=== PATIENT | female | born 1950 | race Two or more races ===

== ENCOUNTER 2022-05-30 21:37 | Emergency (ER) | payer BC, OTHER ==
[~2022-05-30] VITALS: Ht 162.6 cm; Wt 140.0 kg
[2022-05-30] MEDS ORDERED: CALCIUM CHLOR(10%) 100MG/ML 10ML SYRINGE IV ONE (21:38)
[2022-05-30] MEDS ORDERED: EPINEPHrine HCL 1 MG/10 ML SYRG IV ONE (21:38)
[2022-05-30] MEDS ORDERED: SODIUM BICARBONATE 8.4% INJ 50ML SYRINGE IV ONE (21:38)
[2022-05-30] MEDS ORDERED: MAGNESIUM SULF 50% 40 MEQ/10 ML VL IV ONE (21:38)
[2022-05-30] MEDS ORDERED: NOREPINEPHRINE 8 MG/250ML KIT 250 ML IV ONE (21:49)
[2022-05-30] MEDS ORDERED: EPINEPHrine HCL 250 ML IV ONE (21:53)
[2022-05-30] MEDS ORDERED: IPRATROPIUM BROM 0.5 MG/2.5ML INH SOL ONE (21:59)
[2022-05-30] MEDS ORDERED: ALBUTEROL SULF 2.5 MG/0.5ML(0.5%) NEB SOLN ONE (21:59)
[2022-05-30] MEDS ORDERED: NOREPINEPHRINE 8 MG/250ML KIT 250 ML IV SCH (22:00)
[2022-05-30] MEDS ORDERED: EPINEPHrine HCL 250 ML IV SCH (22:00)
[2022-05-30] MEDS ORDERED: methylPREDNISolone SOD SUCC 125 MG/2 ML VL ONE (22:09)
[2022-05-30] MEDS ORDERED: EPINEPHrine HCL 0.5 ML NEB ONE (22:11)
[2022-05-30] MEDS ORDERED: VASOPRESSIN 20 UNIT/ML ONE (22:20)
[2022-05-30] MEDS ORDERED: VASOPRESSIN 50 UNITS in D5W 5% 247.5 ML IV SCH (22:30)
[2022-05-30] MEDS ORDERED: ACCU-CHEK COMFORT CURVE STRIP VI PRN (22:30)
[2022-05-30] MEDS ORDERED: methylPREDNISolone SOD SUCC 125 MG/2 ML VL IV ONE (22:30)
[2022-05-30] MEDS ORDERED: MAGNESIUM SULFATE 1GM/100ML 100 ML IV ONE (22:30)
[2022-05-30 22:35] VITALS: BP 91/55
== END 2022-05-31 00:31 ==
LOC: ER 21:37 → EDBD 21:37 → ER 05-31 00:31
DX: I46.9 Cardiac arrest, cause unspecified (principal); J44.9 Chronic obstructive pulmonary disease, unspecified; Z86.73 Personal history of transient ischemic attack (TIA), and cerebral infarction without residual deficits
CPT/HCPCS: 31500; 36556; 36600; 71045; 82805; 87070; 87205; 92950; 94640; 96365; 96375; 99291; J0171; J2930; J3475; J7060; J7644; 94002